=== PATIENT | female | born 1960 | race Caucasian/White ===

== ENCOUNTER 2017-08-21 08:44 | Inpatient (IN) | payer BC ==
[2017-08-10 11:42] VITALS: BMI 36.0
--- NOTE | 2017-08-10 12:21 | PAT Medication Instructions ---
Service Date Aug 10, 2017. Current Home Medication List Albuterol Sulfate (Proventil Hfa), 2 PUFFS INH PRN Atorvastatin (Lipitor), 40 MG PO QPM Buspirone Hcl (Buspar), 15 MG PO BID Dicyclomine Hcl (Dicyclomine Hcl), 1 TAB PO TID Lisinopril/Hctz (Zestoretic 20MG/12.5MG), 1 TAB PO for AM Metoprolol Succ (Toprol Xl) (Toprol-Xl), 50 MG PO BID Nortriptyline Hcl (Pamelor), 75 MG PO BID Paroxetine (Paxil), 20 MG PO QAM Medication Instructions For Your Scheduled Surgery - Hold the following medications the morning of surgery: Lisinopril/Hctz (Zestoretic 20MG/12.5MG), 1 TAB PO for AM Dicyclomine Hcl (Dicyclomine Hcl), 1 TAB PO TID - Take the following medications the morning of surgery with a sip of water: Paroxetine (Paxil), 20 MG PO QAM Nortriptyline Hcl (Pamelor), 75 MG PO BID Metoprolol Succ (Toprol Xl) (Toprol-Xl), 50 MG PO BID Albuterol Sulfate (Proventil Hfa), 2 PUFFS INH PRN (if needed, and bring it with you to the hospital) Buspirone Hcl (Buspar), 15 MG PO BID - Take the following medications as scheduled the night before surgery: Nortriptyline Hcl (Pamelor), 75 MG PO BID Metoprolol Succ (Toprol Xl) (Toprol-Xl), 50 MG PO BID Atorvastatin (Lipitor), 40 MG PO QPM Albuterol Sulfate (Proventil Hfa), 2 PUFFS INH PRN (if needed) Buspirone Hcl (Buspar), 15 MG PO BID Dicyclomine Hcl (Dicyclomine Hcl), 1 TAB PO TID If you have any questions please call us at [phone] or [phone] or [phone]
[2017-08-10 13:03] LABS: BASO % 0.3 %; BASO ABS # 0.02 K/uL (0-0.2); EOS % 1.8 %; EOS ABS # 0.13 K/uL (0-0.5); HEMATOCRIT 35.6 % (37-47); IG# 0.06 K/uL (0.00-0.02); LYMPH % 27.2 %; LYMPH ABS # 1.98 K/uL (1.2-3.4); MEAN CELL VOLUME 94.4 fL (80-100); MEAN CORPUSCULAR HEMOGLOBIN 31.8 pg (25-34); MEAN CORPUSCULAR HGB CONC 33.7 g/dl (32-36); MEAN PLATELET VOLUME 8.3 fL (7.4-10.4); MONO % 7.2 %; MONO ABS # 0.52 K/uL (0.11-0.59); NEUT % 62.7 %; NEUT ABS # 4.56 K/uL (1.4-6.5); PLATELET COUNT 378 K/uL (130-400); RED CELL DISTRIBUTION WIDTH CV 13.7 % (11.5-14.5); RED CELL DISTRIBUTION WIDTH SD 47.3 fL (36.4-46.3); WHITE BLOOD COUNT 7.27 K/uL (4.8-10.8)
[2017-08-10 13:12] LABS: INR 0.9 (0.9-1.1); PTT PATIENT 25.2 SECONDS (21.0-31.0)
--- NOTE | 2017-08-10 13:15 | DIAGNOSTIC IMAGING REPORT ---
TWO VIEW CHEST CLINICAL HISTORY: Preoperative examination. FINDINGS: PA and lateral chest radiographs are obtained. No prior studies are available for comparison at the time of dictation. The cardiomediastinal silhouette is unremarkable. The lungs and pleural spaces are clear. There is no pneumothorax. The bony thorax appears intact. IMPRESSION: No active disease in the chest. Electronically signed by: Devin Uriarte M.D. 08/10/2017 1:13 PM Dictated Date/Time: 08/10/2017 1:13 PM
[2017-08-10 13:35] LABS: CALCIUM 9.3 mg/dl (8.5-10.1); CREATININE 0.6 mg/dl (0.60-1.20); POTASSIUM 3.6 mmol/L (3.5-5.1)
[2017-08-21] VITALS (9 sets, daily range): BP systolic 96–119; BP diastolic 63–77; PULSE 83–101; TEMP 36.5–36.7; O2SAT 91–99; Ht 152.4 cm; Wt 85.1 kg
[~2017-08-21] VITALS: Ht 152.4 cm; Wt 85.1 kg
[~2017-08-21 08:44] MED LIST: ALBUAER INH; ATOR-24 PO; BUSP15TA70 PO; CEFAZOLIN 2000MG IV PUSH 10 ML IV SCH; DICY20TA10 PO; LACTATED RINGER'S 1000ML 1,000 ML IV SCH; LISI-787 PO; METO50TA7 PO; NORT75CA2 PO; PARO1TAB27 PO
[2017-08-21] MEDS ORDERED: EpHEDrine SULFATE INJ 50 MG/ML AMP IV PRN (09:00)
[2017-08-21] MEDS ORDERED: MIDAZOLAM HCL 1 MG/ML 2ML VIAL ONE (09:00)
[2017-08-21] MEDS ORDERED: MoRPHine SULFATE 10 MG/ML CARP/VIAL IV PRN (09:00)
[2017-08-21] MEDS ORDERED: FENTANYL CITRATE INJ 50 MCG/1 ML 2 ML VIAL ONE ×2 (09:00→10:23)
[2017-08-21] MEDS ORDERED: ONDANSETRON INJ 2 MG/ML 2 ML VIAL IV PRN ×2 (09:00→11:45)
[2017-08-21] MEDS ORDERED: ATROPINE SULFATE 0.1 MG/ML 5ML SYR IV PRN (09:00)
[2017-08-21] MEDS ORDERED: FENTANYL CITRATE INJ 50 MCG/1 ML 2 ML VIAL IV PRN (09:00)
--- NOTE | 2017-08-21 09:16 | History & Physical Bridge Note ---
H&P Re-Evaluation Bridge Note: I have examined the patient, reviewed the History & Physical and in the interval since the performance of the History & Physical I have noted the following changes of clinical significance: No changes noted
--- NOTE | 2017-08-21 09:17 | History and Physical ---
History & Physical Date Aug 21, 2017. Chief Complaint Back and leg pain History of Present Illness The patient is a 57 year old female with complaints of back and leg pain Additional History Hepatic Disease: No Endocrine Disorder: No Kidney Disease: No Hypertension: Yes Heart Disease: No Bleeding Tendencies: No Infectious Diseases: No Allergies Coded Allergies: Cat Dander (Verified Allergy, Unknown, CAT DOG DANDER,DUST-ITCHY EYES HIVES, SNEEZING, 08/21/17) Food Additives (Verified Allergy, Unknown, WATERMELON, PINEAPPLE-THROAT ITCHES,SCRATCHES, 08/21/17) Hydrocodone (Verified Allergy, Unknown, GI UPSET WITH MANY PAIN MEDS, ) Home Medications Scheduled Albuterol Sulfate (Proventil Hfa), 2 PUFFS INH PRN Atorvastatin (Lipitor), 40 MG PO QPM Buspirone Hcl (Buspar), 15 MG PO BID Dicyclomine Hcl (Dicyclomine Hcl), 1 TAB PO TID Metoprolol Succ (Toprol Xl) (Toprol-Xl), 50 MG PO BID Nortriptyline Hcl (Pamelor), 75 MG PO BID Paroxetine (Paxil), 20 MG PO QAM Scheduled PRN Lisinopril/Hctz (Zestoretic 20MG/12.5MG), 1 TAB PO for AM Physical Examination Skin: warm/dry, no rash Eyes: normal inspection, EOMI, sclerae normal ENT: normal ENT inspection, pharynx normal Head: normocephalic, atraumatic Neck: supple, no adenopathy, trachea midline Respiratory/Chest: lungs clear, normal breath sounds, no respiratory distress Cardiovascular: regular rate, rhythm, no edema, no murmur Abdomen / GI: normal bowel sounds, non tender Back: normal inspection Extremities: normal inspection, normal range of motion Neurologic/Psych: no motor/sensory deficits, alert, normal reflexes, oriented x 3 Diagnosis Lumbar spinal stenosis with spondylolisthesis Plan of Treatment L5-S1 decompression and fusion
[2017-08-21] MEDS ORDERED: SCOPOLAMINE 1.5 MG TDSY TD ONE ×2 (09:19→09:30)
[2017-08-21] MEDS ORDERED: BACITRACIN 50000 UNIT VIAL ONE (09:32)
[2017-08-21] MEDS ORDERED: BUPIVACAINE/EPINEPHRINE 0.5% MPF 1:200,000 30 ML VIAL ONE (09:32)
[2017-08-21] MEDS ORDERED: HYDROmorphone INJ 2 MG/ML SYR/VIAL ONE ×2 (10:23→11:34)
[2017-08-21] MEDS ORDERED: PHENYLEPHRINE 100MCG/ML 5ML SYR ONE (10:59)
[2017-08-21] MEDS ORDERED: EpHEDrine SULFATE 50MG/5ML SYR ONE (11:05)
[2017-08-21] MEDS ORDERED: ONDANSETRON INJ 2 MG/ML 2 ML VIAL ONE (11:18)
[2017-08-21] MEDS ORDERED: ROCURONIUM BROMIDE 10 MG/ML 5 ML VIAL IV ONE (11:18)
[2017-08-21] MEDS ORDERED: DEXAMETHASONE SOD INJ 4 MG/ML VIAL ONE (11:18)
[2017-08-21] MEDS ORDERED: LIDOCAINE HCL 2% 2 ML VIAL (20MG/ML) ONE (11:18)
[2017-08-21] MEDS ORDERED: PROPOFOL IV EMULSION 10 MG/ML 20 ML VIAL IV ONE (11:18)
[2017-08-21] MEDS ORDERED: RANITIDINE HCL 25 MG/ML INJ ONE (11:18)
[2017-08-21] MEDS ORDERED: METOCLOPRAMIDE HCL INJ 5 MG/ML 2 ML VIAL ONE (11:18)
[2017-08-21] MEDS ORDERED: FLOSEAL HEMOSTATIC MATRIX 10ML TOP ONE (11:21)
--- NOTE | 2017-08-21 11:31 | [facility] Operative Report ---
Operative Report Operative Date Aug 21, 2017. Pre-Operative Diagnosis Lumbar spinal stenosis with spondylolisthesis Post-Operative Diagnosis Lumbar spinal stenosis with spondylolisthesis Procedure(s) Performed #1 lumbar decompression medial facetectomies foraminotomies L5-S1. #2 posterior spinal fusion L5-S1. #3 placement of posterior instrumentation L5-S1. #4 interbody fusion L5-S1. #5 placement of peek cage 10 x 22 mm at L5-S1. #6 placement of locally harvested morcellized autograft in the posterior lateral gutters. #7 placement of infuse collagen sponge, mass graft in the posterior lateral gutters and ostial amp in the interbody space. Surgeon Dr. Martin Perez Margin Analyst Surgeon(s) Pascual Mistry PA-C Estimated Blood Loss 100 cc Findings Spinal listhesis with spinal stenosis Specimens no specimens per surgeon Dr. Connor Perez Anesthesia Type General Description of Procedure Patient was met with preoperatively case discussed all questions addressed. After informed consent obtained patient was taken back to the operative suite underwent intubation and placed in the prone position on the Michael table on top of the Sudarshan frame. All bony prominences were well-padded I suspected to ensure no external pressure placed upon them. At this point the lumbar spine was prepped and draped in normal sterile fashion. Sharp dissection with the assistance of Bovie cautery was performed down to and exposing the lamina transverse processes of L5 and the sacral area bilaterally. Obvious pars defects were appreciated. Then performed a complete laminectomy of L5 dressing severe lateral recess and foramina stenosis. Pedicle screws were then placed and L5 and S1 levels bilaterally with the assistance of fluoroscopy in the appropriate size mary carmen placed. 2 transforaminal approach on the left complete discectomy was performed and plate could to subcortical bleeding bone and a 10 x 22 mm peek cage filled with osteon bone graft In position. The resident compressed locked and final position bilaterally. The transverse processes of L5 and sacral alar bur to subcortical bone. Infuse sponges sponge mask of locally harvested morcellized autograft was placed the posterior lateral gutters. 10 round TAYA drain inserted. The incision was then closed with 1 Vicryl in the fascia 2-0 Vicryl subcutaneously and 4-0 Monocryl for final skin closure. Steri-Strips and a sterile dressing was placed. The patient awakened and taken to PACU stable condition. Please note Madhu Mistry was present at the entire procedure involved in patient positioning complex portions of the surgery and final skin closure. I attest to the content of the Intraoperative Record and any orders documented therein. Any exceptions are noted below.
[2017-08-21] MEDS ORDERED: SODIUM CHLORIDE 0.9% 1000ML 1,000 ML IV SCH (11:34)
[2017-08-21] MEDS ORDERED: KETOROLAC TROMETHAMINE 30 MG/ML VIAL ONE (11:36)
[2017-08-21] MEDS ORDERED: GLYCOPYRROLATE INJ 0.2 MG/ML VIAL ONE (11:36)
[2017-08-21] MEDS ORDERED: NEOSTIGMINE METHYLSULFATE 1 MG/ML 10ML VIAL ONE (11:36)
[2017-08-21] MEDS ORDERED: NALOXONE HCL 0.4 MG/1 ML VIAL/CARP IV PRN ×2 (11:45)
[2017-08-21] MEDS ORDERED: SOD PHOSPHATE/SOD BIPHOSPHATE ENEMA 132 ML BTL PR PRN (11:45)
[2017-08-21] MEDS ORDERED: ACETAMINOPHEN IV 100 ML IV PRN (11:45)
[2017-08-21] MEDS ORDERED: ALUMINUM/MAGNESIUM SUSP 30 ML UDC PO PRN (11:45)
[2017-08-21] MEDS ORDERED: hydrOXYzine HCL 25 MG TAB PO PRN (11:45)
[2017-08-21] MEDS ORDERED: FAMOTIDINE 20 MG TAB PO PRN (11:45)
[2017-08-21] MEDS ORDERED: LORAZEPAM INJ 0.5 MG in SYRINGE 0.75 ML IV PRN (11:45)
[2017-08-21] MEDS ORDERED: MAGNESIUM HYDROXIDE SUSP 30 ML UDC PO PRN (11:45)
[2017-08-21] MEDS ORDERED: METOCLOPRAMIDE HCL INJ 5 MG/ML 2 ML VIAL IV PRN (11:45)
[2017-08-21] MEDS ORDERED: ACETAMINOPHEN 500 MG TAB PO PRN (11:45)
[2017-08-21] MEDS ORDERED: PROMETHAZINE HCL INJ 12.5 MG in SODIUM CHLORIDE 0.9% 50ML 50 ML IV PRN (11:45)
[2017-08-21] MEDS ORDERED: DO NOT ADMINISTER FLU VACCINE PRN (11:45)
[2017-08-21] MEDS ORDERED: DO NOT ADMINISTER PNEUMOCOCCAL VACCINE PRN (11:45)
[2017-08-21] MEDS ORDERED: LORAZEPAM 0.5 MG TAB PO PRN (11:45)
[2017-08-21] MEDS ORDERED: BISACODYL 10 MG SUPP PR PRN (11:45)
[2017-08-21] MEDS ORDERED: HYDROmorphone HCL 0.5MG/ML 50 ML CASSETTE ONE (11:53)
--- NOTE | 2017-08-21 12:01 | DIAGNOSTIC IMAGING REPORT ---
INTRAOPERATIVE RADIOGRAPHS CLINICAL HISTORY: L5-S1 spinal fusion. Fluoroscopy time: 17 seconds. FINDINGS: 2 spot fluoroscopic views of the lumbar spine are presented. There has been discectomy at L5-S1 with laminectomy and posterior fusion at this level. Interpedicular screws are present at both levels. The orthopedic hardware appears intact. IMPRESSION: Intraoperative images from L5 -S1 spinal fusion as above. Electronically signed by: Devin Uriarte M.D. 08/21/2017 11:59 AM Dictated Date/Time: 08/21/2017 11:58 AM
--- NOTE | 2017-08-21 12:31 | Anesthesiology Progress Note ---
Anesthesia Post Op Note Date & Time Aug 21, 2017 at 12:30 Vital Signs Pain Intensity: 3.0 Vital Signs Past 12 Hours Date Time Temp Pulse Resp B/P (MAP) Pulse Ox O2 Delivery O2 Flow Rate FiO2 08/21/17 12:20 82 13 140/85 95 Nasal Cannula 4 08/21/17 12:10 88 13 135/84 95 Oxymask 10 08/21/17 12:00 76 13 130/82 96 Oxymask 10 08/21/17 11:51 36.0 78 18 142/95 95 Oxymask 10 08/21/17 09:06 96 Room Air Notes Mental Status: alert / awake / arousable, participated in evaluation Pt Amnestic to Procedure: Yes Nausea / Vomiting: adequately controlled Pain: adequately controlled Airway Patency, RR, SpO2: stable & adequate BP & HR: stable & adequate Hydration State: stable & adequate Anesthetic Complications: no major complications apparent
[2017-08-21] MEDS: SODIUM CHLORIDE 0.9% 1000ML 1,000 ML IV SCH ×2 (14:22→20:02)
[2017-08-21] MEDS: HYDROmorphone HCL 0.5MG/ML 50 ML CASSETTE IV PRN ×2 (15:03→18:51)
[2017-08-21] MEDS: DICYCLOMINE HCL 20 MG TAB PO SCH ×2 (16:48→20:04)
[2017-08-21] MEDS ORDERED: ALBUTEROL HFA INHALER 8.5 GM INH PRN (17:15)
[2017-08-21] MEDS ORDERED: NURSING VERBAL MED ORDER ONE (17:15)
[2017-08-21] MEDS: CEFAZOLIN IV 2,000 MG in SYRINGE 5 ML IV SCH (17:46)
[2017-08-21] MEDS: DOCUSATE SODIUM/SENNA 50/8.6MG TAB PO SCH (20:04)
[2017-08-21] MEDS: NORTRIPTYLINE HCL 25 MG CAP PO SCH (20:05)
[2017-08-21] MEDS: ATORVASTATIN 40 MG TAB PO SCH (20:05)
[2017-08-21] MEDS: BusPIRone 15 MG TAB PO SCH (20:05)
[2017-08-21] MEDS: METOPROLOL SUCC 50MG EXT REL TAB PO SCH (20:08)
[2017-08-22] VITALS (9 sets, daily range): BP systolic 76–135; BP diastolic 45–80; PULSE 87–103; TEMP 36.6–36.9; O2SAT 93–96
[2017-08-22] MEDS: CEFAZOLIN IV 2,000 MG in SYRINGE 5 ML IV SCH (02:15)
[2017-08-22] MEDS: SODIUM CHLORIDE 0.9% 1000ML 1,000 ML IV SCH (03:14)
[2017-08-22] MEDS ORDERED: HYDROmorphone INJ 0.5 MG/0.5 ML SYR IV PRN (06:00)
[2017-08-22] MEDS ORDERED: NURSING DECISION MEDICATION ORDER SCH (06:00)
[2017-08-22] MEDS ORDERED: HYDROmorphone INJ 1 MG/ML SYR IV PRN (06:00)
[2017-08-22] MEDS ORDERED: DC PCA SCH (06:00)
[2017-08-22 06:12] LABS: HEMATOCRIT 31.8 % (37-47); HEMOGLOBIN 10.6 g/dL (12.0-16.0); LYMPH ABS # 1.04 K/uL (1.2-3.4); MEAN CELL VOLUME 94.9 fL (80-100); MEAN CORPUSCULAR HEMOGLOBIN 31.6 pg (25-34); MEAN CORPUSCULAR HGB CONC 33.3 g/dl (32-36); MEAN PLATELET VOLUME 8.5 fL (7.4-10.4); MONO % 7.4 %; MONO ABS # 1.28 K/uL (0.11-0.59); NEUT ABS # 14.96 K/uL (1.4-6.5); PLATELET COUNT 352 K/uL (130-400); RED CELL DISTRIBUTION WIDTH CV 13.5 % (11.5-14.5); RED CELL DISTRIBUTION WIDTH SD 46.8 fL (36.4-46.3); WHITE BLOOD COUNT 17.38 K/uL (4.8-10.8)
[2017-08-22 06:42] LABS: CALCIUM 8.3 mg/dl (8.5-10.1); CREATININE 0.96 mg/dl (0.60-1.20); POTASSIUM 4.2 mmol/L (3.5-5.1)
[2017-08-22] MEDS: METOPROLOL SUCC 50MG EXT REL TAB PO SCH ×2 (07:31→21:11)
[2017-08-22] MEDS: PAROXETINE 20 MG TAB PO SCH (07:31)
[2017-08-22] MEDS: BusPIRone 15 MG TAB PO SCH ×2 (07:31→21:05)
[2017-08-22] MEDS: OXYCODONE HCL IR 5 MG TAB (IMMEDIATE RELEASE) PO PRN ×4 (07:31→21:39)
[2017-08-22] MEDS: LISINOPRIL/HCTZ 20/12.5MG TAB PO SCH (07:32)
[2017-08-22] MEDS: DICYCLOMINE HCL 20 MG TAB PO SCH ×3 (07:32→21:06)
[2017-08-22] MEDS: NORTRIPTYLINE HCL 25 MG CAP PO SCH ×2 (07:32→21:06)
[2017-08-22] MEDS ORDERED: RXC5 PO (09:10)
--- NOTE | 2017-08-22 09:11 | Discharge Instructions ---
Discharge Instructions Date of Service Aug 22, 2017. Admission Reason for Admission: Spinal Stenosis Discharge Discharge Diagnosis / Problem: lumbar stenosis Discharge Goals Goal(s): Improve function Activity Recommendations Activity Limitations: per Instructions/Follow-up section . Instructions / Follow-Up Instructions / Follow-Up ACTIVITY RECOMMENDATIONS: SELF CARE INSTRUCTIONS AFTER THORACIC/LUMBAR FUSIONS 1. You may walk to your tolerance. It is good exercise for your legs and back. Expect some back and intermittent leg aches and pains. 2. You may perform "counter-top" level activities (make a sandwich, sid with a project, etc.). 3. No bending or lifting of more than 10 pounds or back twisting of any nature (roll like a log when turning in bed). 4. You may ride in a car for 20-30 minutes at a time. No driving until after your first visit with your doctor. 5. Frequent changes of position and restricting sitting to 30 minutes at a time will help limit the amount of back spasms and stiffness you may experience. 6. You may discontinue the use of ambulatory aids (cane, crutches, etc.) once your strength and confidence allow. 7. You may hotel and dining room cashier the shower and let water strike your incision when you arrive home at least once daily. Do not take a tub bath, sit in a hot tub or go into a swimming pool until after your first recheck in the office. SPECIAL CARE INSTRUCTIONS: VERY IMPORTANT TO READ AND REVIEW A. Your surgical incision has been closed with a cosmetic suture under the skin that will dissolve in about 6 weeks. In 14 days, you can use a pair of clean scissors and cut the suture that is left outside of the skin at the ends of your incision. 1. The small skin tapes can be removed 7 days after surgery if they have not fallen off by that point. 2. You may keep the wound open to air as much as possible to promote healing after post-op day number 5 unless told otherwise by your doctor. 3. If you think the wound looks like it is becoming infected (redness or worsening drainage) and/or you are experiencing fever, chill or worsening back pain and muscle spasms, contact the office so that we may evaluate you as soon as possible. B. Complications are uncommon, but please contact us if you have any signs or symptoms of: 1. wound infection (fever higher than 102.5 degrees F, redness, separation of wound, drainage, or increasing pain from the incision) 2. blood clots in legs (pain, swelling, redness and warmth in legs) 3. urinary tract infection (fever higher than 102.5 degrees F, burning upon urination or increased frequency of urination) 4. nerve problems (inability to walk on your toes or heels, numbness, loss of bowel or bladder control) 5. any other symptoms that concern you C. Please call the office at if you have any concerns or questions about your operation or recovery. D. No smoking! Smoking drastically decreases the chance of a solid fusion. E. Do not take any anti-inflammatory medications (Indocin, Advil, Motrin, Aspirin, Naprosyn, etc.) as these may inhibit the chance of a solid fusion. Tylenol is okay to take for pain. MANAGING PAIN AFTER SPINAL SURGERY 1. Narcotic medication is intended for short-term use and will be provided for surgical pain. Surgical pain usually lasts for a period of 4-6 weeks. Narcotic medication includes Percocet, Vicodin, Darvocet, Tylenol #3 or Lortab. 2. Longer-term pain is more appropriately treated with non-narcotic medication such as Tylenol ES. 3. Muscle spasm is not appropriately treated with narcotics. Muscle relaxers such as Soma, Flexeril or Skelaxin can be used along with Tylenol ES. 4. Remember that we all live with some "aches and pains". This is not unusual or uncommon after an injury or as we get older. a. Back pain is expected and may include muscle spasms for 4 to 6 weeks after surgery. The pain should gradually improve. If the pain worsens for no apparent reason, please contact the office. b. Intermittent leg pain may also be experienced and should not be concerned about unless it worsens for no apparent reason. If so, please contact the office. 5. We will provide appropriate medication within the normal guidelines of their prescribed use. We will also be very cautious and aware of potential abuse and extended duration of patients' medication needs. a. Pain medications are for your comfort and to assist with sleep and rest so that the tissue can heal. They are not provided in order to return to normal activity and should not be used through the day. To do so or worsening pain at night can result from ongoing tissue damage and development of tolerance to the prescribed medicine. 6. Please allow 2-3 days to process refills. Prescriptions will not be mailed but must be picked up at the office. FOLLOW UP VISIT: Keep your scheduled follow-up appointment. Any questions, please call the office at . Current Hospital Diet Patient's current hospital diet: Regular Diet Discharge Diet Recommended Diet: Regular Diet Procedures Procedures Performed: #1 lumbar decompression medial facetectomies foraminotomies L5-S1. #2 posterior spinal fusion L5-S1. #3 placement of posterior instrumentation L5-S1. #4 interbody fusion L5-S1. #5 placement of peek cage 10 x 22 mm at L5-S1. #6 placement of locally harvested morcellized autograft in the posterior lateral gutters. #7 placement of infuse collagen sponge, mass graft in the posterior lateral gutters and ostial amp in the interbody space. Pending Studies Studies pending at discharge: no Medical Emergencies . Who to Call and When: Medical Emergencies: If at any time you feel your situation is an emergency, please call 911 immediately. . Non-Emergent Contact Non-Emergency issues call your: Primary Care Provider . "Provider Documentation" section prepared by Martin Perez. . VTE Core Measure Inpt VTE Proph given/why not?: Trinh Johnson, SCD's
--- NOTE | 2017-08-22 09:18 | Progress Note ---
Progress Note Date of Service Aug 22, 2017. Progress Note Patient underwent lumbar decompression fusion tolerated this well taken the orthopedic floor possibly. This morning she is sitting up in bed has good strength testing. She is comfortable. On exam she's good strength testing. Assessment status post lumbar decompression fusion. At this time initiate physical therapy assess her progress discharge from Thursday or Thursday.
[2017-08-22] MEDS: KETOROLAC TROMETHAMINE 30 MG/ML VIAL IV PRN ×2 (10:51→21:04)
[2017-08-22] MEDS: ATORVASTATIN 40 MG TAB PO SCH (21:06)
[2017-08-22] MEDS: DOCUSATE SODIUM/SENNA 50/8.6MG TAB PO SCH (21:07)
[2017-08-23] MEDS: POLYETHYLENE (MIRALAX) 17 GM PACK PO SCH ×2 (06:03→12:23)
[2017-08-23 07:43] VITALS: BP 105/72; PULSE 97; TEMP 37.3; O2SAT 100
[2017-08-23] MEDS: PAROXETINE 20 MG TAB PO SCH (07:45)
[2017-08-23] MEDS: NORTRIPTYLINE HCL 25 MG CAP PO SCH ×2 (07:45→22:15)
[2017-08-23] MEDS: DICYCLOMINE HCL 20 MG TAB PO SCH ×3 (07:45→22:15)
[2017-08-23] MEDS: BusPIRone 15 MG TAB PO SCH ×2 (07:45→22:15)
[2017-08-23] MEDS: OXYCODONE HCL IR 5 MG TAB (IMMEDIATE RELEASE) PO PRN ×4 (07:45→22:14)
[2017-08-23] MEDS: METOPROLOL SUCC 50MG EXT REL TAB PO SCH ×2 (07:45→22:15)
[2017-08-23] MEDS: KETOROLAC TROMETHAMINE 30 MG/ML VIAL IV PRN ×3 (07:45→23:38)
[2017-08-23] MEDS: LISINOPRIL/HCTZ 20/12.5MG TAB PO SCH (07:46)
--- NOTE | 2017-08-23 07:51 | Orthopedic Progress Note ---
Orthopedic Progress Note Date of Service Aug 23, 2017. Subjective Post OP Day: 2 Additional Notes: Patient is postoperative day 2. She is completes of lower back pain. She reports her radicular pain is improving. TAYA drain output last shift was 10 mL. Yesterday with physical therapy she's feeling roughly 200 feet. She is passing flatus but no bowel movement. She has new lab value of positive hep C on her preliminary labs. She has no prior known history. Objective calves soft nontender, N/V intact, dressing C/D/I, A&O x3, toes mobile She is up and ambulatory with a walker in the restroom. No obvious distress. Lumbar dressing is clean dry and intact. Lower extremities neurovacsularly intact. Calves are soft and nontender bilaterally. Date Time Temp Pulse Resp B/P (MAP) Pulse Ox O2 Delivery O2 Flow Rate FiO2 08/23/17 07:43 37.3 97 18 105/72 (83) 100 Room Air 08/22/17 23:40 96 Room Air 08/22/17 22:47 95/59 (71) 08/22/17 22:45 36.8 93 16 76/45 (55) 96 Room Air 08/22/17 21:18 103 116/75 (89) 08/22/17 16:15 80/48 (59) 08/22/17 16:15 Room Air 08/22/17 15:12 36.7 87 18 76/45 (55) 93 Room Air 08/22/17 13:37 36.6 91 18 105/70 (82) 96 Room Air 08/22/17 08:00 Room Air Assessment & Plan Assessment: Postoperative day 2 lumbar decompression with instrumented fusion Plan: She will continue physical therapy today. Work on aggressive route bowel regimen. DVT prophylaxis is not from teds and SCDs. Continue with pain control. I expect her to be discharged home tomorrow. We will consult infectious disease regards to her new hep C positive lab. I have counseled her on this. She is also asked to follow-up with her family physician as well. Inhouse Planning DVT Prophylaxis: SARY Barbas Discharge Planning Discharge Planning: home DVT Prophylaxis: Freda
[2017-08-23 13:55] VITALS: BP 96/68; PULSE 104; O2SAT 95
[2017-08-23] MEDS ORDERED: NURSING VERBAL MED ORDER ONE (15:00)
[2017-08-23 16:16] VITALS: BP 105/73; PULSE 84; TEMP 36.7; O2SAT 96
--- NOTE | 2017-08-23 17:58 | Medical Consult ---
Consultation Date of Consultation: Aug 23, 2017. Attending Physician: Martin Perez D.O. Reason for Consultation: Hepatitis-C History of Present Illness 57-year-old female with history of hypertension, hyperlipidemia, depression, who is now status post lumbar fusion surgery. Patient had blood drawn for hepatitis-C screening, and results are a preliminary positive. Patient has not been known to be hepatitis-C carrier, no history of transfusion, denies IV drug abuse. She has not had abdominal complaints, episodes of jaundice, skin or arthritic complaints. She is currently afebrile and hemodynamically stable postoperatively. Past Medical/Surgical History Past medical history: Hypertension, hyperlipidemia, depression Past surgical history: Lumbar fusion Family History Noncontributory Social History Smoking Status: Former Smoker Allergies Coded Allergies: Cat Dander (Verified Allergy, Unknown, CAT DOG DANDER,DUST-ITCHY EYES HIVES, SNEEZING, 08/21/17) Food Additives (Verified Allergy, Unknown, WATERMELON, PINEAPPLE-THROAT ITCHES,SCRATCHES, 08/21/17) Hydrocodone (Verified Allergy, Unknown, GI UPSET WITH MANY PAIN MEDS, ) Current Inpatient Medications Current Inpatient Medications Medications (Trade) Dose Ordered Sig/Sb Route Start Time Stop Time Status Last Admin Dose Admin Promethazine HCl 12.5 mg/Sodium Chloride 50.5 ml @ 202 mls/hr Q6H PRN IV 08/21/17 11:45 09/20/17 11:44 Ondansetron HCl (Zofran Inj) 4 mg Q6H PRN IV 08/21/17 11:45 09/20/17 11:44 Metoclopramide HCl (Reglan Inj) 10 mg Q6H PRN IV 08/21/17 11:45 09/20/17 11:44 Lorazepam (Ativan Tab) 0.5 mg Q8H PRN PO 08/21/17 11:45 09/20/17 11:44 08/23/17 12:23 0.5 MG Lorazepam 0.5 mg/ Syringe 1 ml @ 1 mls/min Q8H PRN IV 08/21/17 11:45 09/20/17 11:44 Pneumococcal Polysaccharide Vaccine 1 ea PRN PRN N/A 08/21/17 11:45 09/20/17 11:44 Influenza Virus Vacc Triv Types A&B 1 ea PRN PRN N/A 08/21/17 11:45 09/20/17 11:44 Bisacodyl (Dulcolax Supp) 10 mg DAILY PRN TN 08/21/17 11:45 09/20/17 11:44 Magnesium Hydroxide (Milk Of Magnesia Susp) 30 ml DAILY PRN PO 08/21/17 11:45 09/20/17 11:44 08/23/17 07:46 30 ML Hydromorphone HCl (Dilaudid Inj) 0.5 mg Q3H PRN IV 08/22/17 06:00 09/05/17 05:59 Oxycodone HCl (Roxicodone Immediate Rel Tab) 5-10mg prn moderate to sev... Q4H PRN PO 08/22/17 06:00 09/05/17 05:59 08/23/17 16:11 10 MG Acetaminophen (Tylenol Tab) 1,000 mg Q8H PRN PO 08/21/17 11:45 09/20/17 11:44 Acetaminophen 100 ml @ 400 mls/hr Q8H PRN IV 08/21/17 11:45 09/20/17 11:44 Naloxone HCl (Narcan Inj) 0.1 mg Q5M PRN IV 08/21/17 11:45 09/20/17 11:44 Senna/Docusate Sodium (Senokot S Tab) 2 tab HS PO 08/21/17 21:00 09/20/17 20:59 08/22/17 21:07 2 TAB Sodium Biphosphate/ Sodium Phosphate (Fleet Enema) 132 ml ONE PRN TN 08/21/17 11:45 09/20/17 11:44 Hydroxyzine HCl (Vistaril Tab) 25 mg Q8H PRN PO 08/21/17 11:45 09/20/17 11:44 Al Hydroxide/Mg Hydroxide (Maalox Susp) 30 ml Q6H PRN PO 08/21/17 11:45 09/20/17 11:44 Famotidine (Pepcid Tab) 20 mg Q12 PRN PO 08/21/17 11:45 09/20/17 11:44 Diphenhydramine HCl (Benadryl Cap) 25 mg Q6H PRN PO 08/21/17 11:45 3/4/18 11:44 Atorvastatin Calcium (Lipitor Tab) 40 mg QPM PO 08/21/17 21:00 09/20/17 20:59 08/22/17 21:06 40 MG Buspirone HCl (BusPAR TAB) 15 mg BID PO 08/21/17 21:00 09/20/17 20:59 08/23/17 07:45 15 MG Dicyclomine HCl (Bentyl Tab) 20 mg TID PO 08/21/17 16:00 09/20/17 15:59 08/23/17 13:51 20 MG HCTZ/Lisinopril (Prinzide 20-12.5MG Tab) 1 tab DAILY PO 08/22/17 09:00 09/21/17 08:59 08/22/17 07:32 1 TAB Metoprolol Succinate (Toprol Xl Tab) 50 mg BID PO 08/21/17 21:00 09/20/17 20:59 08/23/17 07:45 50 MG Nortriptyline HCl (Pamelor Cap) 75 mg BID PO 08/21/17 21:00 09/20/17 20:59 08/23/17 07:45 75 MG Paroxetine HCl (pAXil TAB) 20 mg QAM PO 08/22/17 09:00 09/21/17 08:59 08/23/17 07:45 20 MG Hydromorphone HCl (Dilaudid Inj) 1 mg Q3H PRN IV 08/22/17 06:00 09/05/17 05:59 08/23/17 06:02 1 MG Albuterol (Proair Hfa) 2 puffs Q4H PRN INH 08/21/17 17:15 09/20/17 17:14 Ketorolac Tromethamine (Toradol Inj) 30 mg Q6H PRN IV 08/22/17 09:15 08/27/17 09:14 08/23/17 16:11 30 MG Review of Systems All systems were reviewed and are negative except as per HPI Physical Exam Date Time Temp Pulse Resp B/P (MAP) Pulse Ox O2 Delivery O2 Flow Rate FiO2 08/23/17 16:16 36.7 84 18 105/73 (84) 96 Room Air 08/23/17 16:10 Room Air 08/23/17 13:55 104 96/68 (77) 95 Room Air 08/23/17 08:00 Room Air 08/23/17 07:43 37.3 97 18 105/72 (83) 100 Room Air 08/22/17 23:40 96 Room Air 08/22/17 22:47 95/59 (71) 08/22/17 22:45 36.8 93 16 76/45 (55) 96 Room Air 08/22/17 21:18 103 116/75 (89) General Appearance: WD/WN, no apparent distress, + obese Head: normocephalic, atraumatic Eyes: normal inspection, EOMI, sclerae normal ENT: normal ENT inspection, hearing grossly normal, pharynx normal Neck: supple, no adenopathy, thyroid normal, trachea midline Respiratory/Chest: chest non-tender, lungs clear, normal breath sounds, no respiratory distress Cardiovascular: regular rate, rhythm, no edema, no gallop, no JVD, no murmur Abdomen/GI: normal bowel sounds, non tender, soft, no organomegaly Back: normal inspection, no CVA tenderness Extremities/Musculoskelatal: normal inspection, no calf tenderness, normal capillary refill, non-tender Neurologic/Psych: alert, normal mood/affect, oriented x 3 Skin: normal color, warm/dry, no rash, + pertinent finding (Surgical dressing intact, drain in place) Lymphatic: no adenopathy Assessment & Plan 57-year-old female status post orthopedic surgery now found to be positive on screening hepatitis-C antibody testing. We will need to wait for confirmation, and if positive, further workup including viral, genotype being, and fibrosis S a appropriate. Discussed at length with patient and her all aspects of hepatitis-C infection, including complications and treatment, and they appear satisfied with our discussion. We will follow up with patient once discharged from hospital.
[2017-08-23 22:12] VITALS: BP 111/77; PULSE 99
[2017-08-23] MEDS: DOCUSATE SODIUM/SENNA 50/8.6MG TAB PO SCH (22:15)
[2017-08-23] MEDS: ATORVASTATIN 40 MG TAB PO SCH (22:15)
[2017-08-23 23:22] VITALS: BP 101/64; PULSE 94; TEMP 37; O2SAT 94
[2017-08-24 06:26] VITALS: BP 115/69; PULSE 96; TEMP 37; O2SAT 96
[2017-08-24] MEDS: DICYCLOMINE HCL 20 MG TAB PO SCH (07:35)
[2017-08-24] MEDS: BusPIRone 15 MG TAB PO SCH (07:35)
[2017-08-24] MEDS: PAROXETINE 20 MG TAB PO SCH (07:36)
[2017-08-24] MEDS: NORTRIPTYLINE HCL 25 MG CAP PO SCH (07:36)
[2017-08-24] MEDS: LISINOPRIL/HCTZ 20/12.5MG TAB PO SCH (07:36)
[2017-08-24] MEDS: METOPROLOL SUCC 50MG EXT REL TAB PO SCH (07:37)
[2017-08-24 07:38] VITALS: BP 94/60; PULSE 99; TEMP 36.9; O2SAT 96
[2017-08-24] MEDS: OXYCODONE HCL IR 5 MG TAB (IMMEDIATE RELEASE) PO PRN ×2 (07:41→13:02)
[2017-08-24] MEDS: KETOROLAC TROMETHAMINE 30 MG/ML VIAL IV PRN (07:42)
[2017-08-24 08:24] VITALS: BP 94/60; PULSE 99; TEMP 36.9; O2SAT 96
[2017-08-24 08:39] VITALS: O2SAT 96
[2017-08-24 12:13] VITALS: BP 102/68
--- NOTE | 2017-08-24 13:08 | Discharge Summary ---
Orthopedic Discharge Summary Admission Date/Reason Aug 21, 2017 at 11:38 Spinal Stenosis. Discharge Date/Disposition Aug 24, 2017 Home Diagnosis Principal Diagnosis: Lumbar spinal stenosis Admission Physical Exam As per Admitting History & Physical. Hospital Course Patient underwent lumbar decompression fusion tolerated this well was taken to the orthopedic floor postoperatively. Postoperative she progress to normal pattern TAYA drain decreased appropriately. She was discharged home. Discharge orders and instructions Found on the chart for further review. Discharge Instructions Please refer to the electronic Patient Visit Report (Discharge Instructions) for additional information.
== END 2017-08-24 13:38 | disposition home or self-care (01) | DRG 455 ==
LOC: C.ACU 08:44 → C.3E 11:38 → ENRESERV 12:16 → CANBEDREQ 19:05
PROVIDERS: ADMIT Orthopaedic Surgery Orthopaedic Surgery of the Spine; ATTEND Orthopaedic Surgery Orthopaedic Surgery of the Spine
PROC: 0SG30AJ Fusion of Lumbosacral Joint with Interbody Fusion Device, Posterior Approach, Anterior Column, Open Approach (ICD-10-PCS; principal; 2017-08-21 10:15)
PROC: 0SG3071 Fusion of Lumbosacral Joint with Autologous Tissue Substitute, Posterior Approach, Posterior Column, Open Approach (ICD-10-PCS; principal; 2017-08-21 10:15)
PROC: 0ST40ZZ Resection of Lumbosacral Disc, Open Approach (ICD-10-PCS; principal; 2017-08-21 10:15)
DX: M48.061 Spinal stenosis, lumbar region without neurogenic claudication (principal); M43.16 Spondylolisthesis, lumbar region; Z91.048 Other nonmedicinal substance allergy status; Z91.018 Allergy to other foods; Z88.5 Allergy status to narcotic agent; I10 Essential (primary) hypertension; F32.9 Major depressive disorder, single episode, unspecified; B19.20 Unspecified viral hepatitis C without hepatic coma; Z87.891 Personal history of nicotine dependence